=== PATIENT | female | born 1980 | race Asian ===

== ENCOUNTER 2020-10-13 22:15 | Emergency (ER) | payer OTHER ==
[~2020-10-13] VITALS: Ht 162.6 cm; Wt 47.7 kg
[2020-10-14 01:53] VITALS: BP 119/74
== END 2020-10-14 02:09 | disposition home or self-care (01) ==
LOC: EMS 22:18
DX: S09.90XA Unspecified injury of head, initial encounter (principal); M48.02 Spinal stenosis, cervical region; Y04.0XXA Assault by unarmed brawl or fight, initial encounter; Y93.89 Activity, other specified; Y92.89 Other specified places as the place of occurrence of the external cause; Y99.8 Other external cause status
CPT/HCPCS: 70450; 72125; 71045-TC